=== PATIENT | male | born 1990 | race Two or more races ===

== ENCOUNTER 2016-11-02 20:08 | Emergency (ER) | payer OTHER ==
[~2016-11-02] VITALS: Ht 172.7 cm; Wt 68.5 kg
[2016-11-02 20:20] VITALS: BP 148/79
[2016-11-02] MEDS ORDERED: BACITRACIN-POLYMYXIN B TOPICAL OINT UD TOP ONE (21:45)
[2016-11-02] MEDS ORDERED: LIDOCAINE 1% HCL (LOCAL ANESTH.) INJ 20ML MDV IN ONE (21:45)
[2016-11-02] MEDS ORDERED: HYDROcodone-ACET 5/325MG TAB PO ONE (22:00)
== END 2016-11-02 22:45 | disposition home or self-care (01) ==
LOC: ER 20:14
DX: S41.011A Laceration without foreign body of right shoulder, initial encounter (principal); S21.211A Laceration without foreign body of right back wall of thorax without penetration into thoracic cavity, initial encounter; S01.01XA Laceration without foreign body of scalp, initial encounter; F17.210 Nicotine dependence, cigarettes, uncomplicated; X99.1XXA Assault by knife, initial encounter; Y93.89 Activity, other specified; Y99.8 Other external cause status; Y92.89 Other specified places as the place of occurrence of the external cause
CPT/HCPCS: 12006; 71020; 99284; J2001